=== PATIENT | female | born 1975 ===

== ENCOUNTER 2023-07-25 18:13 | Emergency (ER) | payer MEDICAID ==
[2023-07-25 18:30] LABS: BASOPHILS ABSOLUTE AUTO 0.04 K/uL (0.00-0.10); BASOPHILS PERCENT AUTO 0.6 % (0.1-1.3); EOSINOPHILS ABSOLUTE AUTO 0.07 K/uL (0.00-0.40); HEMATOCRIT 42.5 % (34.3-46.0); HEMOGLOBIN 15.3 g/dL (11.2-15.5); IMMATURE GRAN PERCENT AUTO 0.3 % (0.0-0.7); LYMPHOCYTES ABSOLUTE AUTO 1.64 K/uL (0.8-3.3); LYMPHOCYTES PERCENT AUTO 24.4 % (11.4-47.7); MEAN CORPUSCULAR HEMOGLOBIN 30.7 pg (31.6-35.5); MEAN CORPUSCULAR VOLUME 85.3 fL (81.4-99.0); MONOCYTES ABSOLUTE AUTO 0.51 K/uL (0.20-0.90); MONOCYTES PERCENT AUTO 7.6 % (3.3-12.6); NEUTROPHILS ABSOLUTE AUTO 4.45 K/uL (1.0-7.6); NEUTROPHILS PERCENT AUTO 66.1 % (40.0-78.1); PLATELET COUNT,PLT 269 K/uL (130-375); RED BLOOD CELL COUNT 4.98 M/uL (3.77-5.24); WHITE BLOOD CELL COUNT,WBC 6.7 K/uL (3.2-11.0)
[2023-07-25 18:31] LABS: IMMATURE GRAN ABSOLUTE AUTO 0.02 K/uL (0.00-0.23)
[2023-07-25 18:45] LABS: CALCIUM 9.1 mg/dL (8.5-10.1); CREATININE 0.9 mg/dL (0.6-1.0); EST CRCL DRUG DOSING (CG) 61.86 mL/min; POTASSIUM,K 3.9 mmol/L (3.6-5.2)
[2023-07-25 18:46] LABS: ANION GAP 13.9 mmol/L (5.0-14.0)
[2023-07-25 19:39] LABS: APPEARANCE,URINE SLIGHTLY CLOUDY (CLEAR); BILIRUBIN,URINE NEGATIVE (NEGATIVE); COLOR,URINE YELLOW (YELLOW); GLUCOSE,URINE NEGATIVE (NEGATIVE); KETONES,URINE 15 mg/dL (NEGATIVE); LEUKOCYTE ESTERASE,URINE NEGATIVE (NEGATIVE); NITRITE,URINE NEGATIVE (NEGATIVE); OCCULT BLOOD,URINE NEGATIVE (NEGATIVE); PROTEIN,URINE 100 mg/dL (NEGATIVE); UROBILINOGEN,URINE 0.2 EU/dL (0.2-1.0)
[2023-07-25 19:43] LABS: RBC,URINE 0-5 (0-5); WBC,URINE 0-5 (0-5)
[2023-07-25 19:44] LABS: AMORPHOUS SEDIMENT,URINE NOT SEEN; AMPHETAMINES SCREEN, URINE NEGATIVE (NEGATIVE); BACTERIA,URINE FEW; BARBITURATE SCREEN,URINE NEGATIVE (NEGATIVE); BENZODIAZEPINES SCREEN,URINE PRESUMPTIVE POSITIVE (NEGATIVE); EPITHELIAL CELLS,URINE FEW; METHAMPHETAMINES SCREEN, URINE NEGATIVE (NEGATIVE); MUCUS,URINE NOT SEEN
[2023-07-25 19:45] LABS: METHADONE SCREEN, URINE NEGATIVE (NEGATIVE); OXYCODONE SCREEN,URINE NEGATIVE (NEGATIVE); PROPOXYPHENE SCREEN,URINE NEGATIVE (NEGATIVE); THC SCREEN,URINE 50 NG/ML NEGATIVE (NEGATIVE)
[2023-07-25] MEDS: Alum Hydrox/Mag Hydrox/Simeth 15 ML, Lidocaine 2% 15 ML PO ONE (20:23)
[2023-07-25] MEDS: Sodium Chloride 0.9% 1,000 ML IV SCH (20:23)
[2023-07-25 22:06] LABS: ANION GAP 11.9 mmol/L (5.0-14.0); CALCIUM 8.6 mg/dL (8.5-10.1); CREATININE 0.8 mg/dL (0.6-1.0); EST CRCL DRUG DOSING (CG) 69.59 mL/min; POTASSIUM,K 3.9 mmol/L (3.6-5.2); TROPONIN I HIGH SENSITIVITY 4.5 pg/mL (<=60.3)
== END 2023-07-25 23:31 | disposition home or self-care (01) ==
LOC: JP.ED 18:13
DX: G40.409 Other generalized epilepsy and epileptic syndromes, not intractable, without status epilepticus (principal); E87.1 Hypo-osmolality and hyponatremia; I10 Essential (primary) hypertension; Z88.8 Allergy status to other drugs, medicaments and biological substances; Z79.899 Other long term (current) drug therapy; Z79.51 Long term (current) use of inhaled steroids; Z90.710 Acquired absence of both cervix and uterus
CPT/HCPCS: 36415; 70450; 80048; 80305; 81001; 83605; 84484; 85025; 93005; 96365; 99284; A9270; J3490; J7030